=== PATIENT | male | born 1960 | race Caucasian/White ===

== ENCOUNTER 2016-11-05 07:31 | Inpatient (IN) ==
[2016-11-05] MEDS ORDERED: Nitroglycerin 1 INCH/GM PACKET TP ONE (07:35)
[2016-11-05] MEDS ORDERED: Aspirin 81 MG TAB.CHEW PO ONE (07:35)
--- NOTE | 2016-11-05 07:37 | Emergency Department Note ---
Disposition Clinical Impression: Chest pain Qualifiers: Chest pain type: precordial pain Qualified Code(s): R07.2 - Precordial pain Disposition: Admitted As Inpatient Condition: Fair Referrals: NO,PCP [Primary Care Provider] - Forms: ED Satisfaction Letter Chest Pain HPI - General Chief Complaint: ED Chest Pain Stated Complaint: chest pain Time Seen by Provider: 11/05/16 07:35 Source: patient, family Mode of arrival: private vehicle Limitations: no limitations Vital Signs Reviewed: Yes Nursing Notes Reviewed: Yes - History of Present Illness Pt complaint: chest pain Onset (ago): hour(s) Time: 05:00 Duration: now resolved Onset: during rest Pain Location: left chest Severity: moderate Quality: aching, heaviness Pain Radiation: LUE Improves with: other ("Time" - pain eased and then resolved while enroute) Worsens with: nothing Associated symptoms: Reports: diaphoresis. Denies: nausea, vomiting, dyspnea, sense of impending doom, syncope, palpitations, fever, cough, leg swelling Treatments prior to arrival chest pain: none - Related Data Allergies Allergy/AdvReac Type Severity Reaction Status Date / Time No Known Allergies Allergy Verified 11/05/16 07:34 All systems ED: reviewed and negative except as stated. Constitutional: Denies: fever, chills, weakness, night sweats Eyes: Denies: vision change ENT ED: Denies: throat pain, congestion, dysphagia Cardiovascular: Reports: as per HPI, chest pain, dyspnea on exertion. Denies: palpitations, orthopnea, edema, syncope Respiratory: Denies: dyspnea, wheezes, hemoptysis Gastrointestinal: Denies: abdominal pain, nausea, vomiting Musculoskeletal: Denies: back pain, neck pain, joint swelling Neurological: Reports: paresthesias ("left arm was tingling for a while - shortly after chest pain began - also gone now"). Denies: headache, weakness, numbness Psychiatric: Denies: anxiety Endocrine: Denies: fatigue Hematological/Lymphatic: Denies: easy bleeding, easy bruising Chest Pain PMH - Past Medical History Medical history: Reports: coronary artery disease, myocardial infarction Surgical history: Reports: angioplasty/stent, coronary bypass (CABG) Psychiatric history: Reports: no psych history - Social History Smoking Status: Current every day smoker Alcohol use: Reports: rarely Drug use: Reports: none Physical Exam - General Limitations: no limitations General appearance: alert, in no apparent distress - Head Head exam: atraumatic, normocephalic, normal inspection - Eye Eye exam: Present: normal appearance, PERRL. Absent: scleral icterus, conjunctival injection, periorbital swelling - ENT ENT exam: mucous membranes moist - Neck Neck exam: Present: normal inspection, full ROM, trachea midline. Absent: meningismus - Chest Chest inspection: Present: normal inspection, symmetric chest wall rise. Absent : tenderness - Respiratory Respiratory exam: Present: normal lung sounds bilaterally. Absent: respiratory distress, wheezes, stridor, accessory muscle use, prolonged expiratory phase - Cardiovascular Cardiovascular exam: Present: regular rate, normal rhythm, normal heart sounds - Abdominal Exam Abdominal exam: Present: soft, Non-Tender. Absent: mass, pulsatile mass - Extremities Exam Extremities exam: Present: normal inspection, full ROM. Absent: pedal edema - Back Exam Back exam: Present: normal inspection - Neurological Exam Neurological exam: Present: alert, oriented X3, CN II-XII intact, normal gait. Absent: motor sensory deficit - Psychiatric Psychiatric exam: Present: normal affect, normal mood - Skin Skin exam: Present: warm, dry, intact, normal color Course Course Narrative: Patient presents to the ER after having a 3- minute episode of chest pain and left arm tingling. He has hx of CAD and has had a CABG and a stent. He has not seen a doctor in 3 years and takes no medications. He smokes a pack a day of cigarettes. Upon arrival his pain and paraesthesias are gone. Labs, CXR and EKG are pending. Aspirin given. Patient will most likely require admission for rule out. Case discussed with Dr. Causey. EKG shows ST depression. No Old ECG available. Trying to get one from [place]. CXR is abnormal and WBC count is elevated - with prevelence of neutrophils. Cultures and Lactate ordered. About 5 min after nurse applied NTG paste patient began to feel pain in chest again and was diaphoretic. Paste was removed by me, BP was not significantly changed, IV fluids were started and patient was placed supine. Repeat ECG was ordered. No tech available. Nurse did repeat and it was taken to Dr. Causey. It appears to be worse - more depression and now biphasic T's in V2. Both ECG's were faxed to the lab asst. Dr. Gaines was agreeable to review them. The nurse from the dental laboratory manager called back and stated that she is not concerned about STEMI and that she would send Ariel Avendañop INTERNATIONAL RECRUITER to the ER to assess the patient. 09:18 Patient pain free again. Vitals stable. (There was no significant drop in BP from NTG.) Discussed sending patient to Rad Dept for CTA. Dr. Causey states that it is ok to send patient. Ariel Garcia here to see patient. He also states that patient's ECG's do not warrant immediate intervention. CT shows perhilar mass. Neopasm until proven otherwise. Patient will be admitted. Hospitalist paged. Vital Signs Temperature 97.1 F L 11/05/16 07:34 Pulse Rate 69 11/05/16 07:34 Respiratory Rate 16 11/05/16 07:34 Blood Pressure 118/76 11/05/16 07:34 O2 Sat by Pulse Oximetry 98 11/05/16 07:34 Temperature 97.1 F L 11/05/16 07:42 Pulse Rate 70 11/05/16 10:11 Respiratory Rate 16 11/05/16 07:42 Blood Pressure 106/67 11/05/16 10:11 O2 Sat by Pulse Oximetry 99 11/05/16 10:11 Oxygen Delivery Oxygen Delivery Nasal Cannula Chest Pain - Medical Records Medical records reviewed: Yes I reviewed the patient's medical records. - Lab Data Lab results reviewed: Yes I reviewed the patient's lab results. Lab results narrative: Laboratory Last Values WBC 21.5 K/mcL (4.3-11.1) H 11/05/16 07:53 RBC 4.42 M/mcL (4.19-5.50) 11/05/16 07:53 Hgb 13.4 g/dL (12.9-16.9) 11/05/16 07:53 Hct 40.4 % (37.5-50.1) 11/05/16 07:53 MCV 91.4 fL (83.0-100.0) 11/05/16 07:53 MCH 30.3 pg (28.0-33.3) 11/05/16 07:53 MCHC 33.2 g/dL (31.6-35.5) 11/05/16 07:53 RDW 12.6 % (11.5-14.5) 11/05/16 07:53 Plt Count 350 K/mcL (140-400) 11/05/16 07:53 MPV 9.2 fL (9.4-12.4) L 11/05/16 07:53 Immature Gran % 0.9 % (0-4) 11/05/16 07:53 Seg Neutrophils % 87.1 % 11/05/16 07:53 Lymphocytes % 5.7 % 11/05/16 07:53 Monocytes % 5.7 % 11/05/16 07:53 Eosinophils % 0.3 % 11/05/16 07:53 Basophils % 0.3 % 11/05/16 07:53 Neutrophils # 18.7 K/mcL (1.6-8.9) H 11/05/16 07:53 Lymphocytes # 1.2 K/mcL (0.6-4.6) 11/05/16 07:53 Monocytes # 1.2 K/mcL (0.0-1.3) 11/05/16 07:53 Eosinophils # 0.1 K/mcL (0.0-0.6) 11/05/16 07:53 Basophils # 0.1 K/mcL (0.0-0.2) 11/05/16 07:53 PT 14.3 Seconds (9.4-12.1) H 11/05/16 07:53 INR 1.3 11/05/16 07:53 APTT 26.4 Seconds (26.0-36.0) 11/05/16 07:53 Sodium 135 mEq/L (136-145) L 11/05/16 07:53 Potassium 4.0 mEq/L (3.5-4.5) 11/05/16 07:53 Chloride 99 mEq/L (98-109) 11/05/16 07:53 Carbon Dioxide 26 mEq/L (19-29) 11/05/16 07:53 BUN 7 mg/dL (8-26) L 11/05/16 07:53 Creatinine 0.71 mg/dL (0.72-1.25) L 11/05/16 07:53 Est GFR ( Amer) > 60 (> 60) 11/05/16 07:53 Est GFR (Non-Af Amer) > 60 (> 60) 11/05/16 07:53 BUN/Creatinine Ratio 10 (6-26) 11/05/16 07:53 Glucose 171 mg/dL (70-99) H 11/05/16 07:53 Calculated Osmolality 282 (280-300) 11/05/16 07:53 Lactic Acid 1.1 mmol/L (0.5-2.2) 11/05/16 09:07 Calcium 9.0 mg/dL (8.6-10.8) 11/05/16 07:53 Total Bilirubin 0.9 mg/dL (0.2-1.2) 11/05/16 07:53 Direct Bilirubin 0.5 mg/dL (0.0-0.5) 11/05/16 07:53 Indirect Bilirubin 0.4 mg/dL (0.0-1.2) 11/05/16 07:53 AST 21 Units/L (5-34) 11/05/16 07:53 ALT 23 Units/L (0-55) 11/05/16 07:53 Alkaline Phosphatase 115 Units/L (38-126) 11/05/16 07:53 Troponin I 0.02 ng/mL (0-0.03) 11/05/16 07:53 B-Natriuretic Peptide 102 pg/mL (0-100) H 11/05/16 07:53 Serum Total Protein 8.7 g/dL (6.0-8.3) H 11/05/16 07:53 Albumin 2.7 g/dL (3.5-5.0) L 11/05/16 07:53 Globulin 6.0 g/dL (2.4-3.5) H 11/05/16 07:53 Albumin/Globulin Ratio 0.5 (1.1-2.2) L 11/05/16 07:53 Lipase 19 Units/L (8-78) 11/05/16 07:53 Result diagrams: 11/05/16 07:53 11/05/16 07:53 Lab Results 11/05/16 11/05/16 11/05/16 Range/Units 07:53 07:53 07:53 WBC (4.3-11.1) K/mcL RBC (4.19-5.50) M/mcL Hgb (12.9-16.9) g/dL Hct (37.5-50.1) % MCV (83.0-100.0) fL MCH (28.0-33.3) pg MCHC (31.6-35.5) g/dL RDW (11.5-14.5) % Plt Count (140-400) K/mcL MPV (9.4-12.4) fL Immature Gran % (0-4) % Seg Neutrophils % % Lymphocytes % % Monocytes % % Eosinophils % % Basophils % % Neutrophils # (1.6-8.9) K/mcL Lymphocytes # (0.6-4.6) K/mcL Monocytes # (0.0-1.3) K/mcL Eosinophils # (0.0-0.6) K/mcL Basophils # (0.0-0.2) K/mcL PT 14.3 H (9.4-12.1) Seconds INR 1.3 APTT 26.4 (26.0-36.0) Seconds Sodium 135 L (136-145) mEq/L Potassium 4.0 (3.5-4.5) mEq/L Chloride 99 (98-109) mEq/L Carbon Dioxide 26 (19-29) mEq/L BUN 7 L (8-26) mg/dL Creatinine 0.71 L (0.72-1.25) mg/dL Est GFR ( Amer) > 60 (> 60) Est GFR (Non-Af Amer) > 60 (> 60) BUN/Creatinine Ratio 10 (6-26) Glucose 171 H (70-99) mg/dL Calculated Osmolality 282 (280-300) Lactic Acid (0.5-2.2) mmol/L Calcium 9.0 (8.6-10.8) mg/dL Total Bilirubin 0.9 (0.2-1.2) mg/dL Direct Bilirubin 0.5 (0.0-0.5) mg/dL Indirect Bilirubin 0.4 (0.0-1.2) mg/dL AST 21 (5-34) Units/L ALT 23 (0-55) Units/L Alkaline Phosphatase 115 (38-126) Units/L Troponin I (0-0.03) ng/mL B-Natriuretic Peptide 102 H (0-100) pg/mL Serum Total Protein 8.7 H (6.0-8.3) g/dL Albumin 2.7 L (3.5-5.0) g/dL Globulin 6.0 H (2.4-3.5) g/dL Albumin/Globulin Ratio 0.5 L (1.1-2.2) Lipase 19 (8-78) Units/L 11/05/16 11/05/16 11/05/16 Range/Units 07:53 07:53 09:07 WBC 21.5 H (4.3-11.1) K/mcL RBC 4.42 (4.19-5.50) M/mcL Hgb 13.4 (12.9-16.9) g/dL Hct 40.4 (37.5-50.1) % MCV 91.4 (83.0-100.0) fL MCH 30.3 (28.0-33.3) pg MCHC 33.2 (31.6-35.5) g/dL RDW 12.6 (11.5-14.5) % Plt Count 350 (140-400) K/mcL MPV 9.2 L (9.4-12.4) fL Immature Gran % 0.9 (0-4) % Seg Neutrophils % 87.1 % Lymphocytes % 5.7 % Monocytes % 5.7 % Eosinophils % 0.3 % Basophils % 0.3 % Neutrophils # 18.7 H (1.6-8.9) K/mcL Lymphocytes # 1.2 (0.6-4.6) K/mcL Monocytes # 1.2 (0.0-1.3) K/mcL Eosinophils # 0.1 (0.0-0.6) K/mcL Basophils # 0.1 (0.0-0.2) K/mcL PT (9.4-12.1) Seconds INR APTT (26.0-36.0) Seconds Sodium (136-145) mEq/L Potassium (3.5-4.5) mEq/L Chloride (98-109) mEq/L Carbon Dioxide (19-29) mEq/L BUN (8-26) mg/dL Creatinine (0.72-1.25) mg/dL Est GFR ( Amer) (> 60) Est GFR (Non-Af Amer) (> 60) BUN/Creatinine Ratio (6-26) Glucose (70-99) mg/dL Calculated Osmolality (280-300) Lactic Acid 1.1 (0.5-2.2) mmol/L Calcium (8.6-10.8) mg/dL Total Bilirubin (0.2-1.2) mg/dL Direct Bilirubin (0.0-0.5) mg/dL Indirect Bilirubin (0.0-1.2) mg/dL AST (5-34) Units/L ALT (0-55) Units/L Alkaline Phosphatase (38-126) Units/L Troponin I 0.02 (0-0.03) ng/mL B-Natriuretic Peptide (0-100) pg/mL Serum Total Protein (6.0-8.3) g/dL Albumin (3.5-5.0) g/dL Globulin (2.4-3.5) g/dL Albumin/Globulin Ratio (1.1-2.2) Lipase (8-78) Units/L - Radiology Data Radiology results reviewed: Yes I reviewed the patient's radiology results. Chest X-Ray 11/05/16 07:35 IMPRESSION: 1. New right suprahilar masslike opacity, potentially pneumonia, malignancy, or lymphadenopathy. Recommend further evaluation with a contrast-enhanced chest CT. 2. Pulmonary vascular congestion. D/ / Ray Delgadillo MD / Ray Delgadillo MD Interpreting Provider: Ray Delgadillo MD Chest CTA 11/05/16 08:56 IMPRESSION: 1. No acute pulmonary artery embolism. 2. Right upper lobe mass with right hilar and paratracheal lymphadenopathy. Findings considered neoplastic until proven otherwise. 3. Emphysema. D/ / 11/05/2016 09:52:25 Luis Castellanos MD / Roxanne Storey Interpreting Provider: Luis Castellanos MD - EKG Data EKG attestation: Yes I reviewed and interpreted this EKG. EKG shows normal: sinus rhythm Rate: normal Rhythm: NSR [place]/QRS: IVCD ST segment depression in: v3, v4, v5, v6 When compared to previous EKG there are: previous EKG unavailable Interpretation: other (ST depression) Attestation Statement - Attestation Attestation: For this encounter, I have reviewed the ECONOMIC ADVISER or PA documentation, treatment plan, and medical decision making; and I have had face to face time with this patient. 56-year-old comes in complaining of chest pain started early in the morning. Physical examination lungs are clear. Initial EKG was obtained on arrival showed ST segment depression in precordial leads. Chest x-ray showed hilar pneumonia versus hilar adenopathy. Initial troponin was negative a CTA of the chest showed a right upper lobe mass with right hilar and peritracheal lymphadenopathy considered neoplastic. Patient had an episode of diaphoresis and increased pain and repeat EKG seemed to show increased ST segment depression in precordial leads. Cardiology was consult abated come down and evaluate the patient did review the EKGs. No acute intervention indicated. Be admitted to the hospitalist.
[2016-11-05 08:06] LABS: Basophils # 0.1 K/mcL (0.0-0.2); Basophils % 0.3 %; Eosinophils # 0.1 K/mcL (0.0-0.6); Eosinophils % 0.3 %; Hematocrit 40.4 % (37.5-50.1); Hemoglobin 13.4 g/dL (12.9-16.9); Immature Granulocytes % 0.9 % (0-4); Lymphocytes # 1.2 K/mcL (0.6-4.6); Lymphocytes % 5.7 %; Mean Corpuscular HGB Conc 33.2 g/dL (31.6-35.5); Mean Corpuscular Hemoglobin 30.3 pg (28.0-33.3); Mean Corpuscular Volume 91.4 fL (83.0-100.0); Mean Platelet Volume 9.2 fL (9.4-12.4); Monocytes # 1.2 K/mcL (0.0-1.3); Monocytes % 5.7 %; Neutrophils # 18.7 K/mcL (1.6-8.9); Platelet Count 350 K/mcL (140-400); Red Blood Count 4.42 M/mcL (4.19-5.50); Red Cell Distribution Width 12.6 % (11.5-14.5); Segmented Neutrophils % 87.1 %
[2016-11-05 08:13] LABS: INR 1.3; Prothrombin Time 14.3 Seconds (9.4-12.1)
[2016-11-05 08:16] LABS: Activated Partial Thrombo Time 26.4 Seconds (26.0-36.0)
[2016-11-05 08:19] LABS: Alanine Aminotransferase 23 Units/L (0-55); Albumin 2.7 g/dL (3.5-5.0); Albumin/Globulin Ratio 0.5 (1.1-2.2); Alkaline Phosphatase 115 Units/L (38-126); Aspartate Amino Transferase 21 Units/L (5-34); BUN/Creatinine Ratio 10 (6-26); Bilirubin,Direct 0.5 mg/dL (0.0-0.5); Bilirubin,Indirect 0.4 mg/dL (0.0-1.2); Bilirubin,Total 0.9 mg/dL (0.2-1.2); Blood Urea Nitrogen 7 mg/dL (8-26); Carbon Dioxide 26 mEq/L (19-29); Chloride 99 mEq/L (98-109); Glucose 171 mg/dL (70-99); Lipase 19 Units/L (8-78); Osmolality,Calculated 282 (280-300); Sodium 135 mEq/L (136-145); Total Protein 8.7 g/dL (6.0-8.3); eGFR For African Americans > 60 (> 60); eGFR For Non-African Americans > 60 (> 60)
[2016-11-05] MEDS ORDERED: 0.9 % Sodium Chloride 1,000 ML IVC ONE (08:50)
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
--- NOTE | 2016-11-05 11:56 | Internal Med History&Physical ---
Date of Encounter: 11/05/16 Time of Encounter: 11:56 Assessment and Plan (1) NSTEMI (non-ST elevated myocardial infarction) Current visit: Yes Status: Acute Three episodes of severe chest pain this morning, troponin 0.02 --> 1.02 after six hours. Patient currently chest pain free. Has not taken cardiac meds in at least five years (history of 3V CABG). - Trend troponin - Echo ordered - Daily ASA - Heparin gtt - Cardiology consulted, appreciate assistance. - Monitor on telemetry - Keep patient chest pain free (2) COPD exacerbation Current visit: Yes Status: Acute Cough, sputum production, wheezing. - PO prednisone - Azithromycin PO - Scheduled duonebs - PRN albuterol nebs (3) Lung mass Current visit: Yes Status: Acute Concern for malignancy given appearance on CT combined with weight loss. - Pulmonary consulted, appreciate assistance - Not planning for evaluation immediately, would like cardiac issues stabilized before any pulmonary interventions (4) Nicotine abuse Current visit: Yes Status: Chronic Patient with heavy smoking history, rolls own cigarettes. Also admits to illicit drug use. - Patient counseled on dangers of smoking and need to stop Internal Medicine - H&P: HPI Chief complaint: Chest pain Admitted From: Emergency Dept Plans for Post Hospital Care: Home History of present illness: Mr. Castillo is a 56 year old male with history of CAD s/p CABG and COPD who presented to the ER this morning because of chest pain and shortness of breath. He states that for the past 2-3 days he has been feeling weak, has had increased shortness of breath with increased sputum production. He has woken up the past few night with night sweats. This morning he had woken up at 0430 and was smoking a cigarette when he has sudden onset left anterior chest pressure which radiated to the left arm. He had left arm tingling and numbness. The pain was 8/10 and resolved spontaneously after 5-6 minutes. He was sweaty and short of breath during the episode. He then had another very similar episode which also resolved after 5-6 minutes, so he called his sister and she brought him to the ER for further evaluation. In the ER he was chest pain free, but nitro paste was applied, shortly after which he had another episode of severe chest pain and diaphoresis. The nitro paste was removed and he felt better. EKG was obtained which showed ST depressions in the precordial leads. CTA of the chest was performed which showed right sided lung mass with hilar lymphadenopathy. He admits to a 40-50 pound weight loss over the past six months, but notes that he also broke up with his girlfriend six months ago and thought that's why he had lost weight. Past Med Surg Social Fam HX - Past Medical History Medical history: COPD, coronary artery disease, hypertension, myocardial infarction Psychiatric history: no psych history - Past Surgical History Surgical History: angioplasty/stent, coronary bypass (CABG) - Social History Smoking Status: Current every day smoker Packs per day: 2-2.5 ppd forf 44 years Smokeless Tobacco Status: No Alcohol use: rarely Drug use: none Internal Medicine - H&P: Meds Albuterol Sulfate [Ventolin Hfa] 2 puff IH Q4H PRN 11/05/16 [History] Fluticasone/Salmeterol [Advair 100-50 Diskus] 1 puff IH BID 11/05/16 [History] Allergies No Known Allergies Allergy (Verified 11/05/16 07:34) All Systems PM: A 10-system review of systems was performed and is negative for pertinent findings except as documented above in the HPI. - Constitutional Vitals: Temp Pulse Resp BP Pulse Ox 97.1 F L 62 16 110/69 98 11/05/16 07:42 11/05/16 11:36 11/05/16 11:36 11/05/16 11:36 11/05/16 11:36 General appearance: Present: A&O X 3 Exam: Patient in no acute distress, resting comfortably in bed - Head Head exam: Present: atraumatic - Eye Eye exam: Present: EOMI, sclera anicteric - ENT ENT exam: Present: mucous membranes moist - Neck Neck exam general surgery: Present: supple - Respiratory Additional comments: Decreased breath sounds in bilateral bases - Cardiovascular Cardiovascular exam: Present: RRR. Absent: diastolic murmur, gallop, rubs, systolic murmur - GI/Abdominal GI/Abdominal exam: Present: normal bowel sounds, soft. Absent: distended, tenderness - Extremities Exam Extremities exam: Absent: pedal edema - Neurological Exam Neurological exam: Present: no focal deficits - Skin Skin exam: Absent: rash Internal Med - H&P Results - Labs CBC & Chem 7: 11/05/16 07:53 11/05/16 07:53 Labs: Short CBC 11/05/16 Range/Units 07:53 WBC 21.5 H (4.3-11.1) K/mcL Hgb 13.4 (12.9-16.9) g/dL Hct 40.4 (37.5-50.1) % Plt Count 350 (140-400) K/mcL Neutrophils # 18.7 H (1.6-8.9) K/mcL BMP 11/05/16 07:53 Sodium 135 L Potassium 4.0 Chloride 99 Carbon Dioxide 26 BUN 7 L Creatinine 0.71 L Glucose 171 H Calcium 9.0 Cardiac Enzymes 11/05/16 Range/Units 07:53 Troponin I 0.02 (0-0.03) ng/mL Liver Function 11/05/16 Range/Units 07:53 Total Bilirubin 0.9 (0.2-1.2) mg/dL Direct Bilirubin 0.5 (0.0-0.5) mg/dL AST 21 (5-34) Units/L ALT 23 (0-55) Units/L Alkaline Phosphatase 115 (38-126) Units/L Albumin 2.7 L (3.5-5.0) g/dL - Impressions ITS Impressions Chest X-Ray 11/05/16 07:35 IMPRESSION: 1. New right suprahilar masslike opacity, potentially pneumonia, malignancy, or lymphadenopathy. Recommend further evaluation with a contrast-enhanced chest CT. 2. Pulmonary vascular congestion. D/ / Ray Delgadillo MD / Ray Delgadillo MD Interpreting Provider: Ray Delgadillo MD Chest CTA 11/05/16 08:56 IMPRESSION: 1. No acute pulmonary artery embolism. 2. Right upper lobe mass with right hilar and paratracheal lymphadenopathy. Findings considered neoplastic until proven otherwise. 3. Emphysema. D/ / 11/05/2016 09:52:25 Luis Castellanos MD / Roxanne Storey Interpreting Provider: Luis Castellanos MD
--- NOTE | 2016-11-05 12:39 | Electrocardiograph Report ---
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
[2016-11-05] MEDS ORDERED: Acetaminophen 325 MG TABLET PO PRN (13:19)
[2016-11-05] MEDS ORDERED: Ondansetron 4 MG/2 ML VIAL IVP PRN (13:19)
[2016-11-05] MEDS ORDERED: Naloxone 0.4 MG/ML INJ IVP PRN (13:19)
[2016-11-05] MEDS ORDERED: Albuterol 2.5 MG/3 ML NEBULIZER IH PRN (13:26)
--- NOTE | 2016-11-05 14:41 | Pulmonology Consult Note ---
<Esthela Segovia - Last Filed: 11/05/16 15:38> Date of Encounter: 11/05/16 Time of Encounter: 14:36 Assessment and Plan (1) Lung mass Current Visit: Yes Status: Acute CTA showed right upper lobe mass with right hilar and paratracheal lymphadenopathy. Patient has been smoking maybe 2ppd for 44 years. With patients reported progressive shortness of breath and weight loss of the last year, this is very concerning for malignancy. Patient will require bronchoscopy and biopsy for further evaluation. Discussed findings and plan of care with patient. Offered patient choice of inpatient or outpatient bronchoscopy. Patient elected to have bronchoscopy done outpatient which is reasonable. Will set up bronch and biopsy for next Friday. Due to patient's presentation with chest pain, uptrending trops and significant cardiac history, will need cardiac clearance to proceed with bronch. (2) COPD exacerbation Current Visit: Yes Status: Acute Patient with SOB, sputum production and wheezing worse than baseline. Recommend treatment with antibiotic and steroid taper. Continue home medications - Advair and albuterol. Wean supplemental O2 as tolerated - patient does not use O2 at home. Patient will require pulmonary function tests after resolution of current exacerbation. Management per primary team. (3) Chest pain Current Visit: Yes Status: Acute Patient presented with chest pain and EKG showing ST segment depression. Cardiology on board and they do not feel emergent intervention is needed. Recommended trending trops and an ECHO. Management per cardiology and primary team. (4) CAD (coronary artery disease) Current Visit: Yes Status: Acute (5) Nicotine abuse Current Visit: Yes Status: Chronic Patient counselled on tobacco abuse. History of Present Illness Consult date: 11/05/16 Requesting physician: Sarah Epperson Reason for consult: abnormal CXR/CT Chief complaint: Chest pain, left arm numbness History of present illness: Mr Castillo is a 56yo male with PMH including CAD s/p stent and CABG, borderline DM, HTN, and COPD who presented to the emergency department after several episodes of chest pain/pressure with associated left arm tingling and pain. Patient reports that the chest pain was located in the middle of his chest and he describes it as a pressure. Pain lasted approximately 5-10 min and occurred 5 separate times before arriving in the ED. EKG showed ST depression and cardiology was consulted. They reported that no acute intervention was needed but they would trend troponins and get an ECHO. CXR showed a right suprahilar mass with pulmonary vascular congestion. Follow up CTA showed no PE but did show emphysema and a right upper lobe mass with right hilar and paratracheal lymphadenopathy. Patient reports a history of COPD and states that he uses Advair and a rescue inhaler at home. He denies every having a nebulizer at home or needing supplemental oxygen. He states that he has had a progressive cough for the last 3-4 weeks that is productive of mostly white/clear sputum. He reports associated progressive SOB, hoarseness , wheezing, fever/chills. He denies any hemotysis, runny nose, congestion. Patient denies changes in vision, dysphasia, nausea/vomiting, abdominal pain, or diarrhea but does have some constipation, Patient reported to me 1ppd of cigarettes however reported 2+ ppd to other providers. He has been smoking for 44 years. He had a left collapsed lung when he was 16yr from a hunting accident and required a chest tube. He denies any other lung disease or lung surgeries. Patient does report a weight loss of around 40lbs over the last year that he believes it is related to his girlfriend leaving. He denies any history of ZARA, snoring or every using a positive airway pressure mask. He denies any family history of lung cancer. Patient states that he quite drinking EtOH 15 years ago. He does report that he uses "street drugs" specifically admits to suboxone, prescription pills, meth and marijuana. Past Med Surg Social Fam HX - Past Medical History Medical history: COPD, coronary artery disease, hypertension, myocardial infarction Psychiatric history: no psych history - Past Surgical History Surgical History: angioplasty/stent, coronary bypass (CABG) - Social History Smoking Status: Current every day smoker Packs per day: 2-2.5 ppd forf 44 years Smokeless Tobacco Status: No Alcohol use: rarely Drug use: opiates, marijuana, methamphetamine Occupational status: disabled Current living situation: Home - Independent Activity Level: Independent ambulation Medications and Allergies Albuterol Sulfate [Ventolin Hfa] 2 puff IH Q4H PRN 11/05/16 [History] Fluticasone/Salmeterol [Advair 100-50 Diskus] 1 puff IH BID 11/05/16 [History] Allergies No Known Allergies Allergy (Verified 11/05/16 07:34) All Systems: A 10-system review of systems was performed and is negative for pertinent findings except as documented above in the HPI. - Constitutional Constitutional: chills, fever(s), lethargy, no snoring, no witnessed apnea - EENT Eyes: no loss of vision Nose, mouth and throat: hoarseness, no dizziness, no dysphagia, no epistaxis, no nasal congestion, no nasal discharge, no nasal obstruction, no sore throat - Cardiovascular Cardiovascular: chest pain, diaphoresis, dyspnea on exertion, no irregular heart rhythm, no orthopnea, no palpitations - Respiratory Respiratory: cough, dyspnea on exertion, wheezing, no hemoptysis, no snoring, no stridor, no pain on inspirtation, no chest congestion, no pain with cough - Gastrointestinal Gastrointestinal: no abdominal pain, no diarrhea, no hematemesis, no hematochezia, no melena, no nausea, no vomiting - Neurological Neurological: numbness, paresthesias, no abnormal speech, no confusion, no dizziness, no focal weakness Physical Examination Vital Signs: Vital Signs, Last 4 Hours Temp Pulse Resp BP Pulse Ox 11/05/16 13:43 97.6 F 64 18 113/69 100 11/05/16 13:32 16 129/84 11/05/16 13:18 63 16 113/78 100 General appearance: alert Eyes: nonicteric ENT: oropharynx moist Mallampati (class): 2 Neck: supple Effort: normal Inspection: kyphosis Auscultation: bilateral: clear Cardiovascular: regular rate and rhythm Gastrointestinal: soft, other (reducable hernia) Integumentary: normal Extremities: no cyanosis, no edema normal mental status, non-focal exam mood appropriate, affect normal Results - Laboratory Findings CBC and BMP: 11/05/16 07:53 11/05/16 07:53 PT/INR, D-dimer PT 14.3 Seconds (9.4-12.1) H 11/05/16 07:53 Abnormal lab findings: Abnormal lab results WBC 21.5 K/mcL (4.3-11.1) H 11/05/16 07:53 MPV 9.2 fL (9.4-12.4) L 11/05/16 07:53 Neutrophils # 18.7 K/mcL (1.6-8.9) H 11/05/16 07:53 PT 14.3 Seconds (9.4-12.1) H 11/05/16 07:53 Sodium 135 mEq/L (136-145) L 11/05/16 07:53 BUN 7 mg/dL (8-26) L 11/05/16 07:53 Creatinine 0.71 mg/dL (0.72-1.25) L 11/05/16 07:53 Glucose 171 mg/dL (70-99) H 11/05/16 07:53 B-Natriuretic Peptide 102 pg/mL (0-100) H 11/05/16 07:53 Serum Total Protein 8.7 g/dL (6.0-8.3) H 11/05/16 07:53 Albumin 2.7 g/dL (3.5-5.0) L 11/05/16 07:53 Globulin 6.0 g/dL (2.4-3.5) H 11/05/16 07:53 Albumin/Globulin Ratio 0.5 (1.1-2.2) L 11/05/16 07:53 - Diagnostic Findings Chest x-ray: report reviewed, image reviewed CT scan - chest: report reviewed, image reviewed Additional studies: Chest X-Ray 11/05/16 07:35 IMPRESSION: 1. New right suprahilar masslike opacity, potentially pneumonia, malignancy, or lymphadenopathy. Recommend further evaluation with a contrast-enhanced chest CT. 2. Pulmonary vascular congestion. D/ / Ray Delgadillo MD / Ray Delgadillo MD Interpreting Provider: Ray Delgadillo MD Chest CTA 11/05/16 08:56 IMPRESSION: 1. No acute pulmonary artery embolism. 2. Right upper lobe mass with right hilar and paratracheal lymphadenopathy. Findings considered neoplastic until proven otherwise. 3. Emphysema. D/ / 11/05/2016 09:52:25 Luis Castellanos MD / Roxanne Storey Interpreting Provider: Luis Castellanos MD Head CT 11/05/16 11:26 IMPRESSION: 1. No acute intracranial abnormality. 2. No gross evidence of abnormal enhancement. D/ / Shukri Santana MD / Shukri Santana MD Interpreting Provider: Shukri Santana MD Consult Discharge Plan - Plan Referrals: NO,PCP [Primary Care Provider] - <Wendy Rowell - Last Filed: 11/05/16 17:00> All Systems: A 10-system review of systems was performed and is negative for pertinent findings except as documented above in the HPI. Physical Examination Vital Signs: Vital Signs, Last 4 Hours Temp Pulse Resp BP Pulse Ox 11/05/16 16:46 16 98 11/05/16 16:21 97.8 F 62 16 108/66 98 11/05/16 14:01 100 11/05/16 13:43 97.6 F 64 18 113/69 100 11/05/16 13:32 16 129/84 11/05/16 13:18 63 16 113/78 100 Results - Laboratory Findings CBC and BMP: 11/05/16 16:35 11/05/16 07:53 PT/INR, D-dimer PT 14.3 Seconds (9.4-12.1) H 11/05/16 07:53 Abnormal lab findings: Abnormal lab results WBC 25.6 K/mcL (4.3-11.1) H 11/05/16 16:35 Hgb 12.7 g/dL (12.9-16.9) L 11/05/16 16:35 MPV 9.1 fL (9.4-12.4) L 11/05/16 16:35 Neutrophils # 18.7 K/mcL (1.6-8.9) H 11/05/16 07:53 PT 14.3 Seconds (9.4-12.1) H 11/05/16 07:53 Sodium 135 mEq/L (136-145) L 11/05/16 07:53 BUN 7 mg/dL (8-26) L 11/05/16 07:53 Creatinine 0.71 mg/dL (0.72-1.25) L 11/05/16 07:53 Glucose 171 mg/dL (70-99) H 11/05/16 07:53 Troponin I 1.02 ng/mL (0-0.03) H* 11/05/16 14:44 B-Natriuretic Peptide 102 pg/mL (0-100) H 11/05/16 07:53 Serum Total Protein 8.7 g/dL (6.0-8.3) H 11/05/16 07:53 Albumin 2.7 g/dL (3.5-5.0) L 11/05/16 07:53 Globulin 6.0 g/dL (2.4-3.5) H 11/05/16 07:53 Albumin/Globulin Ratio 0.5 (1.1-2.2) L 11/05/16 07:53 - Clinical Findings Intake & Output: Intake & Output 11/05/16 11/05/16 11/05/16 07:59 15:59 23:59 Intake Total 100 / 100 Output Total 0 / 0 Balance 100 / 100 - Attending Attestation I examined this patient and my medical decision-making was reviewed with the PROCESS CONTROL SUPERVISOR/PA/Advanced Practice Nurse/Resident Physician. I agree with the documented findings, disposition and treatment plan as described except to the extent set forth below. Patient seen and examined. Labs, radiology, chart personally reviewed. 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 Explained to patient about his lung mass and adenopathy and need for biopsy EBUS. He prefers to go home and do this as outpatient, which is reasonable since his symptoms of AECOPD with bronchodilators, inhalers and antibiotics. needs to get better before any procedure. Cardiovascular: Patient has cardiac risk factors and needs cardiology clearance for the procedure. Discussed with primary team and thanks for the consult. When patient is ready to be discharged, then will arrange outpatient bronchoscopy.
[2016-11-05] MEDS ORDERED: *HR* Heparin 5,000 UNIT/ML VIAL IVP PRN (15:22)
[2016-11-05] MEDS ORDERED: *HR* Heparin 5,000 UNIT/ML VIAL IVP ONE (15:22)
--- NOTE | 2016-11-05 15:51 | Electrocardiograph Report ---
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
[2016-11-05] MEDS: Azithromycin 250 MG TABLET PO SCH (16:12)
[2016-11-05] MEDS: Ipratropium/Albuterol Neb 3 ML IH SCH ×2 (16:43→21:06)
[2016-11-05 16:46] LABS: Hematocrit 39.9 % (37.5-50.1); Hemoglobin 12.7 g/dL (12.9-16.9); Mean Corpuscular HGB Conc 31.8 g/dL (31.6-35.5); Mean Corpuscular Hemoglobin 29.5 pg (28.0-33.3); Mean Corpuscular Volume 92.8 fL (83.0-100.0); Mean Platelet Volume 9.1 fL (9.4-12.4); Platelet Count 359 K/mcL (140-400); Red Cell Distribution Width 12.5 % (11.5-14.5)
[2016-11-05 16:54] LABS: INR 1.4; Prothrombin Time 15.6 Seconds (9.4-12.1)
[2016-11-05 16:56] LABS: Activated Partial Thrombo Time 34.3 Seconds (26.0-36.0)
[2016-11-05] MEDS: Heparin 25,000 UNIT/500 ML D5W 25,000 UNIT/500 ML MLS IVC SCH (17:11)
[2016-11-05] MEDS: Budesonide/Formoterol 80/4.5 MDI IH SCH (21:06)
--- NOTE | 2016-11-05 22:09 | Event Note ---
Date of Encounter: 11/05/16 Time of Encounter: 22:08 Critical lab result troponin uptrending. Chest pain free. EKG revealed ST depressions. Continue with heparin drip and cardiology recommendations. D/W Dr. Gaines.
[2016-11-06] MEDS: *HR* Heparin 5,000 UNIT/ML VIAL IVP PRN ×3 (00:52→21:52)
[2016-11-06] MEDS: Ipratropium/Albuterol Neb 3 ML IH SCH ×4 (04:00→21:17)
[2016-11-06 05:19] LABS: Basophils # 0.1 K/mcL (0.0-0.2); Basophils % 0.3 %; Eosinophils # 0.2 K/mcL (0.0-0.6); Eosinophils % 1.2 %; Hematocrit 36.2 % (37.5-50.1); Hemoglobin 11.7 g/dL (12.9-16.9); Immature Granulocytes % 0.6 % (0-4); Lymphocytes # 2.7 K/mcL (0.6-4.6); Lymphocytes % 14.6 %; Mean Corpuscular HGB Conc 32.3 g/dL (31.6-35.5); Mean Corpuscular Hemoglobin 29.8 pg (28.0-33.3); Mean Corpuscular Volume 92.3 fL (83.0-100.0); Mean Platelet Volume 9.6 fL (9.4-12.4); Monocytes # 1.5 K/mcL (0.0-1.3); Neutrophils # 14.1 K/mcL (1.6-8.9); Platelet Count 354 K/mcL (140-400); Red Blood Count 3.92 M/mcL (4.19-5.50); Red Cell Distribution Width 12.7 % (11.5-14.5); Segmented Neutrophils % 75.3 %
[2016-11-06 05:37] LABS: BUN/Creatinine Ratio 13 (6-26); Blood Urea Nitrogen 9 mg/dL (8-26); Calcium 8.7 mg/dL (8.6-10.8); Carbon Dioxide 28 mEq/L (19-29); Chloride 102 mEq/L (98-109); Chol/HDL Ratio 7.3 (0-4.9); Cholesterol 145 mg/dL (< 200); Glucose 220 mg/dL (70-99); HDL Cholesterol 20 mg/dL (40-59); LDL Cholesterol,Calculated 102 mg/dL (0-99); Osmolality,Calculated 291 (280-300); Potassium 3.7 mEq/L (3.5-4.5); Sodium 138 mEq/L (136-145); Triglycerides 114 mg/dL (< 150); eGFR For African Americans > 60 (> 60); eGFR For Non-African Americans > 60 (> 60)
[2016-11-06] MEDS ORDERED: Aspirin 325 MG TABLET PO SCH (09:00)
[2016-11-06] MEDS: predniSONE 20 MG TABLET PO SCH (10:40)
[2016-11-06] MEDS: Budesonide/Formoterol 80/4.5 MDI IH SCH ×2 (11:14→21:17)
[2016-11-06] MEDS ORDERED: *HR* Dextrose 50 % in Water (Syg) 50 ML SYRINGE IVP PRN (11:14)
[2016-11-06] MEDS ORDERED: Dextrose Gel 15 GM PO PRN ×2 (11:14)
--- NOTE | 2016-11-06 11:29 | ECHO - Doppler Report ---
Echocardiogram Name: Bhargavi Castillo Date of Study: 11/05/2016 Date: 1960 Ht: 74.0 in Medical Record#: [id number] Age: 56 Wt: 225.0 lb Gender: Male BSA: 2.28 Order #: [id number] Location: [facility] Room #: 2NE24 Reading Physician: Miky Schneider DO, KELSY, PADMINI THOMPSON Automotive Glass Installer: Peyton Neri Ordering Physician: Ariel Garcia CNP Primary Physician: Indications: Chest pain, Hx CAD Impressions: LVEF 55%. Normal LV chamber size, wall thickness and function. Moderate left ventricular diastolic dysfunction. Atypical septal motion consistent with post-operative status. Normal right ventricular structure and function. Unable to estimate RVSP due to lack of TR jet. No significant valvular dysfunction. Left Ventricular Wall Motion: Rest Echo Findings All wall segments showed normal motion. Findings: Study Quality * Technically sub-optimal due to poor echocardiographic windows. ECG Findings * Normal sinus rhythm with a BBB. Left Ventricle * LVEF 55%. * Normal LV chamber size, wall thickness and function. * Moderate left ventricular diastolic dysfunction. * Atypical septal motion consistent with post-operative status. Right Ventricle * Normal right ventricular structure and function. Left Atrium * Mildly dilated left atrium. Right Atrium * Mildly dilated right atrium. Interatrial Septum * Interatrial septum not well evaluated. Aortic Valve * Probable trileaflet aortic valve. * Mildly calcified aortic valve leaflets. * No aortic regurgitation. * No aortic stenosis. Mitral Valve * Normal mitral valve structure and function. * No mitral regurgitation. * No mitral stenosis. Tricuspid Valve * Normal tricuspid valve structure and function. * No tricuspid regurgitation. * Unable to estimate RVSP due to lack of TR jet. Pulmonic Valve * Pulmonic valve not well visualized. * No pulmonic regurgitation. Aorta * Normally sized aortic root. Pericardium * The pericardium appears normal. IVC * Normal IVC dimensions and inspiratory collapse. Pulmonary Artery * Pulmonary artery not well visualized. History Hypertension Diabetes Hypercholesteremia History of Smoking Years 44 Packs 1 Family History of CAD History of CAD/PTCA Myocardial Infarction Coronary Artery Bypass Graft Measurements: BP: 108/ 66 2D Normal Values RVIDd: 4.30 cm <2.7 cm IVSd: .90 cm 0.6 - 1.0 cm LVIDd: 5.10 cm 3.7 - 5.6 cm LVPWd: 1.00 cm 0.6 - 1.1 cm LVIDs: 3.90 cm 1.5 - 3.6 cm AO: 2.90 cm < 4.0 cm LA: 4.20 cm 2.0 - 4.0cm %FS: 23.50 cm >25 % LA volume: 76 Mitral Valve Peak E:.86 m/sec Peak A:.65 m/sec E/A Ratio:1.3 Peak E' Lat Nicholas:9.36 cm/s Peak E' Med Nicholas:8.77 cm/s E/E' Lat Ratio:9.2 E/E' Med Ratio:9.9 Updated by Miky Schneider DO, KELSY, DONNA, PADMINI on 11/06/2016 11:23:26 AM electronically signed on 11/06/2016 11:23:51 AM with status of Final Wall Motion Rmasey: 1=Normal, 2=Hypokinesis, 3=Akinesis, 4=Dyskinesis, 5=Aneurysmal, 6=Hyperkinetic, X=Not Visualized (Blank)=Missing
--- NOTE | 2016-11-06 11:39 | Cardiology Progress Note ---
Date of Encounter: 11/06/16 Time of Encounter: 11:30 Assessment and Plan (1) NSTEMI (non-ST elevated myocardial infarction) Current Visit: Yes Status: Acute Peak troponin 2.02, troponin now downtrending. Ischemic changes noted on initial ECG however no comparison. Reports has been chest pain free since admission. He is scheduled for outpatient bronchoscopy with biopsy next Friday for suspected lung malignancy. TTE: EF 55% normal wall motion. Recommend medical management, follow-up in the outpatient setting after bronchoscopy to determine if proceeding with [facility] is appropriate. No indication for cardiac rehab at this time. Continue heparin gtt for additional 24 hours (48 total hours). Decrease asa to 81 mg daily, continue statin, will start low dose betablocker. Consider addition of nitrate in future or outpatient with angina. Discussed and reviewed plan with patient at length, he is agreeable. Follow-up with [facility] in 1-[address] López. Cardiology will sign-off, please call with questions. Appointment to be coordinate with office via eCW. (2) Lung mass Current Visit: Yes Status: Acute Concern for malignancy given appearance on CT combined with weight loss. Pulmonology consulted. Scheduled for bronchoscopy/biopsy next Friday with Dr. Rowell. (3) COPD exacerbation Current Visit: Yes Status: Acute Mgmt per primary service. (4) CAD (coronary artery disease) Current Visit: Yes Status: Acute Per Cardiology: Reported history of stenting in 1999 and CABG 3 in 2004 at [place]. No recent ischemic evaluation and has been lost to follow-up. Qualifiers: Coronary Disease-Associated Artery/Lesion type: [place] artery [place] vs. transplanted heart: [place] heart Associated angina: angina presence unspecified Qualified Code(s): I25.10 - Atherosclerotic heart disease of [place] coronary artery without angina pectoris (5) Nicotine abuse Current Visit: Yes Status: Chronic Patient with heavy smoking history, rolls own cigarettes. Also admits to illicit drug use. - Patient counseled on dangers of smoking and need to stop Discussion w patient/family: The assessment and plan as outlined above was discussed with the patient and/or family members who expressed understanding and agreement. All questions were answered. Thank you for involving us in the care of your patient. Please call with any questions. The patient was discussed and reviewed with Dr. López; Cardiology will sign-off , please call with questions. Subjective Principal diagnosis: NSTEMI, suspected malignancy Interval history: Seen and examined. Denies recurrent chest pain or discomfort since admission. Reports cough, dyspnea, and wheezing have improved. Plan discussed in detail with patient who agrees. Objective Vital Signs, Last 4 Hours Resp Pulse Ox 11/06/16 11:14 18 98 11/06/16 07:51 95 General: Conversant, No Apparent Distress HEENT: Atraumatic, Normocephaly Cardiac: Reg Rate and Rhythm, Normal S1 and S2 Lungs: Other (Wheezes throughout) Neuro: Alert and responsive Abdomen: Soft Skin: No rashes noted on visualized skin Musculoskeletal: No Chest Wall Tenderness Extremities: No Edema, Normal Pulses Results 11/06/16 04:11 11/06/16 04:11 Lab Results Impressions ITS Impressions Chest X-Ray 11/05/16 07:35 IMPRESSION: 1. New right suprahilar masslike opacity, potentially pneumonia, malignancy, or lymphadenopathy. Recommend further evaluation with a contrast-enhanced chest CT. 2. Pulmonary vascular congestion. D/ / Ray Delgadillo MD / Ray Delgadillo MD Interpreting Provider: Ray Delgadillo MD Chest CTA 11/05/16 08:56 IMPRESSION: 1. No acute pulmonary artery embolism. 2. Right upper lobe mass with right hilar and paratracheal lymphadenopathy. Findings considered neoplastic until proven otherwise. 3. Emphysema. D/ / 11/05/2016 09:52:25 Luis Castellanos MD / Roxanne Storey Interpreting Provider: Luis Castellanos MD Head CT 11/05/16 11:26 IMPRESSION: 1. No acute intracranial abnormality. 2. No gross evidence of abnormal enhancement. D/ / Shukri Santana MD / Shukri Santana MD Interpreting Provider: Shukri Santana MD Active Medications Acetaminophen (Tylenol) 650 mg PO Q6HR PRN PRN Reason: Mild Pain (1-3) Stop: 05/07/17 13:20 Albuterol Sulfate (Proventil Neb) 2.5 mg IH Q2H PRN; Protocol PRN Reason: Shortness Of Breath/Wheezing Stop: 05/07/17 13:27 Albuterol/Ipratropium (Duoneb) 3 ml IH [id number] KAYLEIGH PRN Reason: Protocol Stop: 05/07/17 16:01 Last Admin: 11/06/16 11:14 Dose: 3 ml Aspirin (Aspirin) 325 mg PO DAILY KAYLEIGH Stop: 05/08/17 09:01 Last Admin: 11/06/16 10:40 Dose: 325 mg Atorvastatin Calcium (Lipitor) 80 mg PO HS KAYLEIGH Stop: 05/07/17 16:04 Last Admin: 11/05/16 16:21 Dose: 80 mg Azithromycin (Zithromax) 500 mg PO Q24H KAYLEIGH Stop: 05/07/17 15:16 Last Admin: 11/05/16 16:12 Dose: 500 mg Budesonide/Formoterol Fumarate (Symbicort) 2 puff IH BIDR KAYLEIGH Stop: 05/07/17 22:01 Last Admin: 11/06/16 11:14 Dose: 2 puff Dextrose/Water (Dextrose 50% (Syg)) 25 ml IVP AD PRN PRN Reason: Hypoglycemia Stop: 05/08/17 11:15 Heparin Sodium (Porcine) (Heparin) 4,000 unit IVP Q6HR PRN PRN Reason: SEE COMMENTS Stop: 05/07/17 15:23 Last Admin: 11/06/16 11:26 Dose: 4,000 unit Heparin Sodium (Porcine) (Heparin) 2,000 unit IVP Q6H PRN PRN Reason: SEE COMMENTS Stop: 05/07/17 15:23 Heparin Sodium/Dextrose (Heparin 25,000 Unit/500 Ml D5w) 25,000 unit in 500 mls @ 19.799 mls/hr IVC .Q24H KAYLEIGH; 9.7 UNIT/KG/HR PRN Reason: Protocol Stop: 05/07/17 15:31 Last Titration: 11/06/16 11:12 Dose: 15.57 unit/kg/hr, 31.8 mls/hr Ceftriaxone Sodium 1,000 mg/ (Dextrose) 100 mls @ 200 mls/hr IVPB Q12H KAYLEIGH Stop: 05/08/17 12:01 Insulin Human Lispro (Humalog) 0 units SQ Q6HR KAYLEIGH PRN Reason: Protocol Stop: 05/08/17 12:01 Morphine Sulfate (Morphine Sulfate) 2 mg IVP Q4HR PRN PRN Reason: Severe Pain (7-10) Stop: 05/07/17 13:20 Naloxone HCl (Narcan) 0.4 mg IVP Q2MIN PRN PRN Reason: Opioid Reversal Stop: 05/07/17 13:20 Ondansetron HCl (Zofran) 4 mg IVP Q8HR PRN PRN Reason: Nausea And Vomiting Stop: 05/07/17 13:20 Prednisone (Prednisone) 40 mg PO DAILY [facility] Stop: 05/08/17 09:01 Last Admin: 11/06/16 10:40 Dose: 40 mg - Imaging and Cardiology Echo: report reviewed Other Results: 12 hour tele: avg HR=69 SR. No significant event noted. - EKG Interpretation EKG results cardiology: personally reviewed Consult Discharge Plan - Plan Referrals: NO,PCP [Primary Care Provider] -
[2016-11-06] MEDS: *HR* Morphine 2 MG/ML SYRINGE IVP PRN ×2 (14:20→21:53)
[2016-11-06] MEDS: Heparin 25,000 UNIT/500 ML D5W 25,000 UNIT/500 ML MLS IVC SCH (14:30)
--- NOTE | 2016-11-06 16:00 | Electrocardiograph Report ---
[place] [id number] Test Date: 2016-11-05 Pat Name: Bhargavi Castillo Department: 111 Room: 2N4 Gender: M [employer] Supervisor: LESIA : [id number] Requested By: Nikhil Aiken Order Number: [id number] Reading MD: Vito Frank MD Measurements Intervals Strong Rate: 66 P: 63 MS: 160 QRS: 58 QRSD: 104 T: 65 QT: 399 QTc: 412 Interpretive Statements SINUS RHYTHM BASELINE ARTIFACT Electronically Signed On 11-06-2016 15:59:01 EDT by Vito Frank MD
[2016-11-06] MEDS: Azithromycin 250 MG TABLET PO SCH (17:25)
[2016-11-06] MEDS: Insulin LISPRO 300 UNITS/3 ML VIAL SQ SCH ×2 (17:26→19:33)
--- NOTE | 2016-11-06 19:09 | Internal Med Progress Note ---
Date of Encounter: 11/06/16 Time of Encounter: 14:00 - Assessment and plan (1) Lung mass Current Visit: Yes Status: Acute Assessment and plan: Follow-up outpatient. (2) COPD exacerbation Current Visit: Yes Status: Acute Assessment and plan: Prednisone, Duoneb, oxygen by nasal cannula. (3) Nicotine abuse Current Visit: Yes Status: Chronic Assessment and plan: I have counseled him on smoking cessation. (4) NSTEMI (non-ST elevated myocardial infarction) Current Visit: Yes Status: Acute Assessment and plan: Aspirin heparin drip, telemetry. Echocardiogram. Cardiology consult. He is at high risk due to heparin drip requiring intensive monitoring of coagulation parameters. - Subjective Interval history: Patient reported chest pain yesterday mellitus chest, pressure-like, severe, now has resolved. Reports associated shortness of breath which now has resolved. He was admitted to our service for acute OH. - Constitutional Vitals: Temp Pulse Resp BP Pulse Ox 98.1 F 66 20 97/63 97 11/06/16 16:24 11/06/16 16:24 11/06/16 16:24 11/06/16 16:24 11/06/16 16:24 General appearance: Present: A&O X 3 - Respiratory Respiratory exam: Present: CTAB. Absent: accessory muscle use, rales, rhonchi, wheezes - Cardiovascular Cardiovascular exam: Present: RRR, +S1, +S2. Absent: diastolic murmur, gallop, rubs, systolic murmur - GI/Abdominal GI/Abdominal exam: Present: normal bowel sounds, soft, no peritoneal signs. Absent: distended, tenderness - Extremities Exam Extremities exam: Present: warm, radial pulses palpable and symetrical. Absent : calf tenderness, cyanotic, pedal edema - Neurological Exam Neurological exam: Present: CN II-XII intact, oriented X3, no focal deficits. Absent: pronater drift, facial droop, speech deficit - Skin Skin exam: Present: dry, intact Internal Medicine: Result - Labs CBC & Chem 7: 11/06/16 04:11 11/06/16 04:11 Labs: Short CBC 11/06/16 Range/Units 04:11 WBC 18.7 H (4.3-11.1) K/mcL Hgb 11.7 L (12.9-16.9) g/dL Hct 36.2 L (37.5-50.1) % Plt Count 354 (140-400) K/mcL Neutrophils # 14.1 H (1.6-8.9) K/mcL BMP 11/06/16 04:11 Sodium 138 Potassium 3.7 Chloride 102 Carbon Dioxide 28 BUN 9 Creatinine 0.69 L Glucose 220 H Calcium 8.7 Cardiac Enzymes 11/05/16 11/06/16 11/06/16 Range/Units 20:35 04:11 10:05 Troponin I 2.02 H* 1.49 H* 1.63 H* (0-0.03) ng/mL - ABG Interpretation ABG results: PT/INR, D-dimer PT 15.6 Seconds (9.4-12.1) H 11/05/16 16:35 - EKG Interpretation EKG Interpreted by Myself: Yes EKG shows normal: sinus rhythm ([address] depressions in V3 to V6) Consult Discharge Plan - Plan Referrals: NO,PCP [Primary Care Provider] -
[2016-11-06] MEDS ORDERED: Insulin LISPRO 300 UNITS/3 ML VIAL SQ SCH (22:30)
[2016-11-07] MEDS: Ipratropium/Albuterol Neb 3 ML IH SCH ×3 (03:48→16:18)
[2016-11-07 04:49] LABS: Basophils % 0.2 %; Eosinophils % 0.2 %; Hematocrit 36.6 % (37.5-50.1); Hemoglobin 11.7 g/dL (12.9-16.9); Immature Granulocytes % 0.7 % (0-4); Mean Corpuscular Hemoglobin 29.3 pg (28.0-33.3); Mean Corpuscular Volume 91.5 fL (83.0-100.0); Mean Platelet Volume 9.3 fL (9.4-12.4); Monocytes # 1.2 K/mcL (0.0-1.3); Neutrophils # 18.7 K/mcL (1.6-8.9); Platelet Count 359 K/mcL (140-400); Red Cell Distribution Width 12.4 % (11.5-14.5); Segmented Neutrophils % 80.9 %
[2016-11-07 05:01] LABS: BUN/Creatinine Ratio 10 (6-26); Blood Urea Nitrogen 6 mg/dL (8-26); Calcium 8.6 mg/dL (8.6-10.8); Carbon Dioxide 24 mEq/L (19-29); Chloride 104 mEq/L (98-109); Glucose 123 mg/dL (70-99); Osmolality,Calculated 285 (280-300); Potassium 3.9 mEq/L (3.5-4.5); Sodium 138 mEq/L (136-145); eGFR For African Americans > 60 (> 60); eGFR For Non-African Americans > 60 (> 60)
[2016-11-07] MEDS: Heparin 25,000 UNIT/500 ML D5W 25,000 UNIT/500 ML MLS IVC SCH (06:02)
[2016-11-07] MEDS: Insulin LISPRO 300 UNITS/3 ML VIAL SQ SCH ×2 (07:59→12:12)
[2016-11-07] MEDS ORDERED: Aspirin 81 MG TAB.CHEW PO SCH (09:00)
[2016-11-07] MEDS: predniSONE 20 MG TABLET PO SCH (09:12)
[2016-11-07] MEDS: Budesonide/Formoterol 80/4.5 MDI IH SCH (11:05)
[2016-11-07] MEDS: *HR* Morphine 2 MG/ML SYRINGE IVP PRN (11:13)
[2016-11-07] MEDS ORDERED: *HR* HYDROcodone/Acet 5/325 mg TABLET PO PRN (11:31)
--- NOTE | 2016-11-07 16:26 | Discharge Summary ---
Date of Encounter: 11/07/16 Time of Encounter: 16:24 - Discharge Diagnosis (1) Lung mass Priority: Secondary Status: Acute (2) COPD exacerbation Priority: Primary Status: Acute Comments: I have provided cessation counseling. He is agreeable. (3) Nicotine abuse Priority: Secondary Status: Chronic (4) NSTEMI (non-ST elevated myocardial infarction) Priority: Secondary Status: Acute - Discharge Medications Prescriptions: Ipratropium/Albuterol Neb [Duoneb] 3 ml IH [id number] #60 inhsol Aspirin 81 mg PO DAILY #30 tab.chew Atorvastatin [Lipitor] 80 mg PO HS #30 tablet Metoprolol [Lopressor] 12.5 mg PO BID #60 tablet PredniSONE 40 mg PO DAILY #30 tablet Home Medications: Albuterol Sulfate [Ventolin Hfa] 2 puff IH Q4H PRN 11/05/16 [History] Fluticasone/Salmeterol [Advair 100-50 Diskus] 1 puff IH BID 11/05/16 [History] Aspirin 81 mg PO DAILY #30 tab.chew 11/07/16 [Rx] Atorvastatin [Lipitor] 80 mg PO HS #30 tablet 11/07/16 [Rx] Ipratropium/Albuterol Neb [Duoneb] 3 ml IH [id number] #60 inhsol 11/07/16 [Rx] Metoprolol [Lopressor] 12.5 mg PO BID #60 tablet 11/07/16 [Rx] PredniSONE 40 mg PO DAILY #30 tablet 11/07/16 [Rx] Allergies/Adverse Reactions: Allergies No Known Allergies Allergy (Verified 11/12/16 12:45) Date of admission: 11/06/16 19:04 Primary care physician: PCP NO - Patient Status Disposition: Home, Self-Care Condition: Fair Functional capacity at discharge: independent ambulation Overall status at discharge: patient is back to baseline - Discharge Instructions Instructions: Metoprolol (By mouth), Prednisone (By mouth), Aspirin (By mouth) , Azithromycin (By mouth), Atorvastatin (By mouth), Ipratropium/Albuterol (By breathing) Follow Up With: Wendy Rowell MD [Partnered Physician] - NO,PCP [Primary Care Provider] - ([facility]- follow up in one to two weeks [phone]) - Diet and Activity Activity: increase activity as tolerated Diet: low fat, low cholesterol, low salt diet Hospital course: Hospital presentation: Mr. Castillo is a 56 year old male with history of CAD s/p CABG and COPD who presented to the ER this morning because of chest pain and shortness of breath. He states that for the past 2-3 days he has been feeling weak, has had increased shortness of breath with increased sputum production. He has woken up the past few night with night sweats. This morning he had woken up at 0430 and was smoking a cigarette when he has sudden onset left anterior chest pressure which radiated to the left arm. He had left arm tingling and numbness. The pain was 8/10 and resolved spontaneously after 5-6 minutes. He was sweaty and short of breath during the episode. He then had another very similar episode which also resolved after 5-6 minutes, so he called his sister and she brought him to the ER for further evaluation. In the ER he was chest pain free, but nitro paste was applied, shortly after which he had another episode of severe chest pain and diaphoresis. The nitro paste was removed and he felt better. EKG was obtained which showed ST depressions in the precordial leads. CTA of the chest was performed which showed right sided lung mass with hilar lymphadenopathy. He admits to a 40-50 pound weight loss over the past six months, but notes that he also broke up with his girlfriend six months ago and thought that's why he had lost weight. The patient was admitted to the medical service and treated for COPD exacerbation With IV steroids and inhaled bronchodilators and antibiotics. He was diagnosed with a non-ST elevation PA and cardiology was consulted. His troponin peaked at 2.02. Cardiology recommended against invasive treatment due to his history of large lung mass and risk of bleeding. He had he had an echocardiogram which shows normal 55% ejection fraction no wall motion abnormalities. He was treated with heparin drip for 48 hours for the acute PA. Today he is hemodynamically stable and will be discharged home. He has a close follow-up workup of his lung mass. 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 - Time Spent with Patient Total time spent providing and/or coordinating discharge services: Greater than 30 minutes - Constitutional Vitals: Temp Pulse Resp BP Pulse Ox 98.2 F 58 12 101/67 96 11/07/16 10:59 11/07/16 10:59 11/07/16 10:59 11/07/16 10:59 11/07/16 07:55 General appearance: Present: A&O X 3 - Respiratory Respiratory exam: Present: CTAB. Absent: accessory muscle use, rales, rhonchi, wheezes - Cardiovascular Cardiovascular exam: Present: RRR, +S1, +S2. Absent: diastolic murmur, gallop, rubs, systolic murmur - GI/Abdominal GI/Abdominal exam: Present: normal bowel sounds, soft, no peritoneal signs. Absent: distended, tenderness
[2016-11-07 16:38] VITALS: BP 117/73
== END 2016-11-07 18:37 | disposition home or self-care (01) | DRG 190 ==
LOC: 2NENU 07:31 → EMEROO 07:31 → 2NENU 13:39
PROVIDERS: ADMIT Internal Medicine; ATTEND Internal Medicine